=== PATIENT | female | born 1990 | race Two or more races ===

== ENCOUNTER 2023-10-22 10:25 | Emergency (ER) | payer OTHER ==
[2023-10-22 10:44] VITALS: O2SAT 100
[2023-10-22 10:53] LABS: BASOPHILS # (AUTO) 0.1 10^3/uL (0.0-0.1); BASOPHILS % (AUTO) 1.6 %; EOSINOPHILS # (AUTO) 0.2 10^3/uL (0.0-0.7); EOSINOPHILS % (AUTO) 3.5 %; HCT - HEMATOCRIT 41.7 % (37.0-47.0); HGB - HEMOGLOBIN 13.5 g/dL (12.0-16.0); LYMPHOCYTES # (AUTO) 1.9 10^3/uL (1.5-3.5); LYMPHOCYTES % (AUTO) 44.9 %; MEAN CORPUSCULAR HEMOGLOBIN 29.5 pg (27.0-31.0); MEAN CORPUSCULAR HGB CONC 32.4 g/dL (32.0-36.0); MEAN PLATELET VOLUME 10.7 fL (7.9-10.8); MONOCYTES # (AUTO) 0.2 10^3/uL (0.0-1.0); MONOCYTES % (AUTO) 5.3 %; NEUTROPHILS # (AUTO) 1.9 10^3/uL (1.5-6.6); NEUTROPHILS % (AUTO) 44.7 %; PLT - PLATELET COUNT 239 10^3/uL (130-450); RED BLOOD COUNT 4.58 10^6/uL (4.20-5.40); RED CELL DISTRIBUTION WIDTH 12.8 % (12.0-15.0); WHITE BLOOD COUNT 4.3 x10^3/uL (4.8-10.8)
[2023-10-22 11:08] LABS: ALBUMIN 4.5 g/dL (3.2-5.5); ALBUMIN/GLOBULIN RATIO 1.6 (1.0-2.2); BILIRUBIN,TOTAL 1.3 mg/dL (0.2-1.0); CALCIUM 10.1 mg/dL (8.5-10.3); CREATININE 0.7 mg/dL (0.6-1.3); POTASSIUM 4.2 mmol/L (3.5-4.5); TOTAL PROTEIN 7.3 g/dL (6.4-8.9)
--- NOTE | 2023-10-22 12:16 | ED Physician Documentation ---
PD HPI ABD PAIN - Stated complaint Stated Complaint: ABD PX - Chief complaint Chief Complaint: Abd Pain - History obtained from History obtained from: Patient - Additional information Additional information: This is an otherwise healthy 33-year-old woman with no history of abdominal surgeries. She had diarrhea yesterday and today has had moderately severe mid epigastric pain nonradiating. It is worse if she lays flat or moves around. It is associated with 1 episode of vomiting. PD PAST MEDICAL HISTORY - Past Medical History Past Medical History: No - Past Surgical History Past Surgical History: No - Present Medications Home Medications: Ambulatory Orders Medication Instructions Recorded Confirmed Omeprazole 40 mg PO DAILY #30 cap 10/22/23 - Allergies Allergies/Adverse Reactions: Allergies Allergy/AdvReac Type Severity Reaction Status Date / Time No Known Drug Allergies Allergy Verified 10/22/23 10:36 - Social History Does the pt smoke?: No Smoking Status: Never smoker Does the pt drink ETOH?: No Does the pt have substance abuse?: No - Immunizations Immunizations are current?: Yes PD ED PE NORMAL - Vitals Vital signs reviewed: Yes - General General: Alert and oriented X 3, No acute distress - Abdomen Abdomen: Normal bowel sounds, Soft, Other (Mild epigastric tenderness more to the left than the right with negative Valdes sign, no lower abdominal tenderness and no surgical signs.) Results - Vitals Vitals: Vital Signs - 24 hr 10/22/23 10/22/23 10/22/23 10:36 11:56 13:00 Temperature 36.7 C Heart Rate 59 L 45 L 59 L Respiratory 18 8 L 20 Rate Blood Pressure 114/72 99/65 106/61 O2 Saturation 100 100 100 Oxygen O2 Source Room air - EKG (time done) 1202 EKG releavant findings:: EKG personally interpreted by author of this note. Relevant findings are: Rate: Rate (enter#) (45) Rhythm: NSR [place]: Normal Intervals: Normal [place] QRS: Normal Ischemia: Normal ST segments - Labs Labs: Laboratory Tests 10/22/23 10/22/23 10/22/23 10:49 10:49 11:00 WBC 4.3 L RBC 4.58 Hgb 13.5 Hct 41.7 MCV 91.0 MCH 29.5 MCHC 32.4 RDW 12.8 Plt Count 239 MPV 10.7 Neut # (Auto) 1.9 Lymph # (Auto) 1.9 [place] # (Auto) 0.2 Eos # (Auto) 0.2 Baso # (Auto) 0.1 Absolute Nucleated RBC 0.00 Nucleated RBC % 0.0 Sodium 137 Potassium 4.2 Chloride 104 Carbon Dioxide 29 Anion Gap 4.0 L BUN 12 Creatinine 0.7 Estimated GFR (MDRD) 96 Glucose 92 Calcium 10.1 Total Bilirubin 1.3 H AST 17 ALT 14 Alkaline Phosphatase 53 Total Protein 7.3 Albumin 4.5 Globulin 2.8 Albumin/Globulin Ratio 1.6 Lipase 12 Urine Color YELLOW Urine Clarity CLEAR Urine pH 7.0 Ur Specific [place] 1.010 Urine Protein NEGATIVE Urine Glucose (UA) NEGATIVE Urine Ketones NEGATIVE Urine Occult Blood NEGATIVE Urine Nitrite NEGATIVE Urine Bilirubin NEGATIVE Urine Urobilinogen 0.2 (NORMAL) Ur Leukocyte Esterase NEGATIVE Ur Microscopic Review NOT INDICATED Urine Culture Comments NOT INDICATED PD Medical Decision Making - ED course ED course: She presents with epigastric pain of about a days duration. It is worse if she lays flat or moves around. Mild tenderness on exam. We tried a GI cocktail which was partially helpful. She declined pain medication. Lab work de monstrated a low normal white count, unremarkable CMP and normal urinalysis. Subsequently CT imaging was done and negative with respect to the epigastric area. Abnormal findings in the pelvis were shared with her and she was given a copy of her CT read but when queried if she gets a lot of pelvic pain or menstrual pain she answered in the negative. Departure - Departure Disposition: 01 Home, Self Care Clinical Impression: Abdominal pain, Gastritis Condition: Good Record reviewed to determine appropriate education?: Yes Instructions: ED Abdominal Pain Female Non-Specific Abdominal Pain, ED Gastritis Prescriptions: Omeprazole 40 mg PO DAILY #30 cap Comments: I sent your prescription electronically to the [facility] in [place]. I suspect you have gastritis and inflammation of the stomach. There is some dietary recommendations below. You can take the medication I would say consistently for a week and then after that just on days where you have it again. Return for new or worsening symptoms. Follow-up with your primary care physician, next available appointment. As discussed, you do have the abnormal findings in your pelvis. It sounds like you are asymptomatic with respect to those but we gave you a copy of the CAT scan read for your records, share with your primary care physician and if you were to start to have a lot of pelvic pain follow-up with a application technician. Forms: PCP List
[2023-10-22] MEDS: LIDOCAINE VISCOUS 2% 15 ML UDC MM STA (12:36)
[2023-10-22] MEDS: MAG HYDROX/AL HYDROX/SIMETH 30 ML UDC PO STA (12:37)
[2023-10-22] MEDS ORDERED: iohexoL-300 100 ML VIAL ONE (13:14)
[2023-10-22] MEDS: iohexoL-300 100 ML VIAL IVP ONE (13:42)
[2023-10-22 13:57] LABS: BILIRUBIN,URINE NEGATIVE (NEGATIVE); GLUCOSE, URINE (UA) NEGATIVE (NEGATIVE); KETONES,URINE (UA) NEGATIVE (NEGATIVE); LEUKOCYTE ESTERASE, URINE NEGATIVE (NEGATIVE); NITRITE,URINE NEGATIVE (NEGATIVE); OCCULT BLOOD,URINE NEGATIVE (NEGATIVE); PROTEIN,URINE NEGATIVE (NEGATIVE); UROBILINOGEN,URINE 0.2 (NORMAL) E.U./dL (NORMAL)
[2023-10-22 14:11] LABS: CLARITY,URINE CLEAR (CLEAR)
[2023-10-22 14:52] VITALS: BP 106/61
--- NOTE | 2023-10-22 14:52 | CT Report ---
PROCEDURE: Abdomen/Pelvis W INDICATIONS: IV only, epigastric abdominal pain CONTRAST: 100ml omni 300 TECHNIQUE: After the administration of intravenous contrast, a CT scan of the abdomen and pelvis was performed. Images were recorded and evaluated at appropriate window settings. Reformats: coronal and sagittal. F or radiation dose reduction, the following was used: automated exposure control, adjustment of mA and /or kV according to patient size. COMPARISON: None. FINDINGS: Image quality: Diagnostic. Lower chest: Unremarkable. Liver: No solid mass. Gallbladder: No radiopaque stones or wall thickening. Biliary tree: No intrahepatic or extrahepatic dilation, accounting for age. Spleen: No splenomegaly. Pancreas: No pancreatic ductal dilation. Adrenals: No adrenal nodule. Kidneys and ureters: No hydronephrosis. No renal cystic lesion which requires follow up. No solid mas s. Stomach, bowel and peritoneum: No gastric or small bowel dilation. No abnormal wall thickening. No pa thologic free fluid. There are internal rectal hemorrhoids. These are well seen on axial image 113 of series 2 as well as coronal image 98 of series 6. Lymph nodes: No central or retroperitoneal adenopathy. Vessels: No infrarenal aortic aneurysm. Patent portal vein. Note is made of a significantly dilated r efluxing left gonadal vein giving rise to left paraovarian and periuterine varicosities. Paraovarian are noted on image 103 of series 2. PELVIS Reproductive organs: Cystic adnexa. Mild pelvic ascites may be slightly greater than physiologic. Bladder: No abnormal wall thickening, accounting for underdistention. Pelvic lymph nodes: No pelvic adenopathy by size criteria. Bones: No aggressive osseous abnormality. Other: No significant ventral or inguinal hernia. IMPRESSION: 1. There are no findings which explain epigastric pain. 2. Note made of a dilated refluxing left gonadal vein with left paraovarian and periuterine varicosit ies. 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 3. Note made of internal hemorrhoids. 4. Cystic adnexa. Slightly greater than physiologic fluid in the pelvis. Reviewed by: Renzo Blood MD on 10/22/2023 2:50 PM PDT Approved by: Renzo Blood MD on 10/22/2023 2:50 PM PDT Station ID: [id number]
[2023-10-22 15:15] LABS: HCG UR QUAL NEGATIVE
== END 2023-10-22 15:12 | disposition home or self-care (01) ==
LOC: ED 10:25
DX: K29.70 Gastritis, unspecified, without bleeding (principal)
CPT/HCPCS: 36415; 74177; 80053; 81003; 81025; 83690; 85025; 93005; 99284; A9270; Q9967; 81001; 87086